=== PATIENT | female | born 1955 | race Caucasian/White ===

== ENCOUNTER → 2017-05-24 | Outpatient (CLI) | payer BC | LOC: BHSO 09:15 | DX: F41.1 Generalized anxiety disorder (principal) ==

== ENCOUNTER → 2017-10-19 | Outpatient (CLI) | payer BC | LOC: BHSO 16:11 | DX: F33.1 Major depressive disorder, recurrent, moderate (principal) ==

== ENCOUNTER → 2018-05-19 | Outpatient (CLI) | payer BC | LOC: BHSO 08:57 | DX: F33.41 Major depressive disorder, recurrent, in partial remission (principal) | CPT/HCPCS: G0463 ==

== ENCOUNTER → 2018-08-25 | Outpatient (CLI) | payer BC | LOC: BHSO 15:57 | DX: F33.41 Major depressive disorder, recurrent, in partial remission (principal) | CPT/HCPCS: G0463 ==

== ENCOUNTER → 2018-11-16 | Outpatient (CLI) | payer BC | LOC: BHSO 16:20 | DX: F41.1 Generalized anxiety disorder (principal) | CPT/HCPCS: G0463 ==

== ENCOUNTER → 2019-07-26 | Outpatient (CLI) | payer BC | LOC: BHSO 15:31 | DX: F41.1 Generalized anxiety disorder (principal) | CPT/HCPCS: G0463 ==

== ENCOUNTER → 2020-08-28 | Outpatient (CLI) | payer BC | LOC: BHSO 15:48 | DX: F41.1 Generalized anxiety disorder (principal) | CPT/HCPCS: G0463 ==